=== PATIENT | male | born 1945 | race Caucasian/White ===

== ENCOUNTER 2016-09-11 23:17 | Inpatient (IN) | payer MEDICARE, OTHER ==
[~2016-09-11] VITALS: Ht 167.6 cm; Wt 51.3 kg
[2016-09-11 23:20] VITALS: BP 171/81; PULSE 113; RESP 20; TEMP 98.5; O2SAT 95
[2016-09-11] MEDS ORDERED: methylPREDNISolone SOD SUCC 125 MG/2 ML VIAL IV PUSH ONE (23:45)
[2016-09-11] MEDS ORDERED: RESP: ALBUTEROL 2.5 MG/IPRATROPIUM 0.5 MG NEB (SCH) NEB ONE (23:45)
[2016-09-11] MEDS ORDERED: SODIUM CHLOR 0.9% 250 ML INJ 250 ML IV ONE (23:45)
[2016-09-11] MEDS ORDERED: SYMB80AE INH (23:52)
[2016-09-11] MEDS ORDERED: AMLO5 PO (23:52)
[2016-09-11] MEDS ORDERED: CHLO7.5 PO (23:52)
[2016-09-12] VITALS (10 sets, daily range): BP systolic 123–177; BP diastolic 66–94; PULSE 97–117; RESP 17–22; TEMP 97.5–99.1; O2SAT 95–100
[2016-09-12] MEDS ORDERED: RESP: IPRATROPIUM 0.5 MG/2.5 ML NEB NEB ONE
[2016-09-12 00:14] LABS: AUTOMATED NEUTROPHIL # 14.8 TH/MM3 (1.8-7.7); BASOPHIL # 0.1 TH/MM3 (0-0.2); BASOPHIL % 0.3 % (0.0-2.0); EOSINOPHIL # 0.1 TH/MM3 (0-0.4); EOSINOPHIL % 0.8 % (0.0-4.0); HEMATOCRIT 24.9 % (39.0-51.0); HEMO FLAGS DIFF FINAL; LYMPH % 4.6 % (9.0-44.0); LYMPHOCYTE # 0.8 TH/MM3 (1.0-4.8); MEAN CELL VOLUME 79.4 FL (80.0-100.0); MEAN CORPUSCULAR HEMOGLOBIN 24.8 PG (27.0-34.0); MEAN CORPUSCULAR HGB CONC 31.2 % (32.0-36.0); MONO % 10.1 % (0.0-8.0); NEUT % 84.2 % (16.0-70.0); PLATELET COUNT 497 TH/MM3 (150-450); RED BLOOD COUNT 3.14 MIL/MM3 (4.50-5.90); RED CELL DISTRIBUTION WIDTH 16.5 % (11.6-17.2); WHITE BLOOD COUNT 17.6 TH/MM3 (4.0-11.0)
--- NOTE | 2016-09-12 00:15 | RADRPT ---
EXAM DATE/TIME: 09/11/2016 23:45 [place] COMPARISON: No previous studies available for comparison. INDICATIONS : Shortness of breath. MEDICAL HISTORY : Chronic obstructive pulmonary disease. SURGICAL HISTORY : None. ENCOUNTER: Initial ACUITY: 1 day PAIN SCORE: 0/10 LOCATION: Bilateral chest FINDINGS: PA and lateral views of the chest demonstrates hyperinflation which can be seen with CO PD. No infiltrates are seen. Heart is normal in size. The mediastinal contours are unremarkable. O sseous structures are intact. CONCLUSION: Hyperinflation which can be seen with COPD. No acute cardiopulmonary disease an d no evidence for an infiltrate. Soham Herrera MD on September 12, 2016 at 0:13 Board Certified Radiologist. This report was verified electronically.
[2016-09-12 00:28] LABS: INTERNATIONAL NORMALIZED RATIO 0.9 RATIO; PROTHROMBIN TIME - PATIENT 10.4 SEC (9.8-11.6)
[2016-09-12 00:33] LABS: ALT (GPT) 26 U/L (12-78); ANION GAP 6 MEQ/L (5-15); AST (GOT) 32 U/L (15-37); BICARBONATE 33.2 MEQ/L (21.0-32.0); BLOOD UREA NITROGEN 13 MG/DL (7-18); CHLORIDE 90 MEQ/L (98-107); GLOMERULAR FILTRATION RATE 52 ML/MIN (>89); POTASSIUM 4.9 MEQ/L (3.5-5.1); SODIUM (NA) 129 MEQ/L (136-145)
[2016-09-12 00:35] LABS: ALKALINE PHOSPHATASE 93 U/L (45-117); TOTAL BILIRUBIN ADULT 0.4 MG/DL (0.2-1.0)
[2016-09-12] MEDS ORDERED: SODIUM CHLOR 0.9% 250 ML INJ 250 ML IV ONE (01:30)
[2016-09-12] MEDS ORDERED: cefTRIAXone INJ 1,000 MG in SODIUM CHLORIDE 0.9% INJ 100 ML IV ONE (01:30)
[2016-09-12] MEDS ORDERED: NALOXONE HCL 0.4 MG/ML AMP IV PRN (02:00)
[2016-09-12] MEDS ORDERED: SODIUM CHLORIDE 0.9% FLUSH 10 ML FLUSH IV FLUSH PRN (02:00)
--- NOTE | 2016-09-12 02:59 | PD ---
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 Patient states when he attempts to urinate he is only able to produce bloody urine. Patient notes feeling weak and admits to shortness of breath that is increased compared to his baseline respiratory status. She denies fever and chills. PFSH Past Medical History Cancer: Yes COPD: Yes Social History Alcohol Use: Yes Tobacco Use: No Substance Use: No Allergies-Medications (Allergen,Severity, Reaction): Coded Allergies: Albuterol (Verified Allergy, Severe, 09/11/16) Iodine (Verified Allergy, Severe, 09/11/16) Reported Meds & Prescriptions Reported Meds & Active Scripts Active Reported Symbicort Inh (Budesonide/Formoterol Fumarate) 80-4.5 Mcg/Act Aero 2 Puff INH Q12HR Norvasc (Amlodipine Besylate) 5 Mg Tab 5 Mg PO DAILY Tranxene T (Clorazepate Dipotassium) 7.5 Mg Tab 7.5 Mg PO BID PRN Review of Systems ROS Limitations: Clinical Condition Except as stated in HPI: all other systems reviewed are Neg General / Constitutional: No: Fever, Chills, Weight Gain, Weight Loss, Other Eyes: No: Diploplia, Blurred Vision, Photophobia, Drainage, Redness, Foreign Body Sensation, Pain, Tearing, Blind Spots, Visual changes, Blindness, Other HENT: No: Headaches, Vertigo, Lightheadedness, Sore Throat, Rhinitis, Rhinorrhea, Congestion, Nosebleed, Neck Stiffness, Neck Pain, Masses, Gingival Bleeding, Dental Difficulties, Ear Discharge, Earache, Other Cardiovascular: No: Chest Pain or Discomfort, Palpitations, Irregular Rhythm, Tachycardia, Diaphoresis, Syncope, Dyspnea on exertion, Varicosities, Edema, Cyanosis, Varicosities, Phlebitis, Claudication, Other Respiratory: Positive: Shortness of Breath, Wheezing, No: Cough, Sneezing, Orthopnea, Hemoptysis, Stridor, Night Sweats, Pleuritic Pain, Other Gastrointestinal: No: Nausea, Vomiting, Diarrhea, Abdominal Pain, Hematemesis, Hematochezia, Constipation, Changes in Bowel Habits, Indigestion, Dysphagia, Loss of Appetite, Other Genitourinary: Positive: Decreased Urinary Output, No: Urgency, Frequency, Dysuria, Nocturia, Hematuria, Oliguria, Hesitancy, Dribbling, Incontinence, Pelvic Pain, Flank Pain, Dyspareunia, Discharge, Dysmenorrhea, Menorrhagia, Metorrhagia, Vaginal Bleeding, Other Musculoskeletal: No: Myalgias, Arthralgias, Limited ROM, Weakness, Cramping, Edema, Pain, Atrophy, Other Skin: No Rash, No Itching, No Dryness, No Lumps, No Hives, No Change in Pigmentation, No Change in nails, No Alopecia, No Lesions, No Breast Lumps, No Breast Tenderness, No Breast Swelling, No Other Neurologic: No: Weakness, Dizziness, Syncope, Focal Abnormalities, Coordination Problem, Tremor, Ataxia, Headache, Change in Mentation, Slurred Speech, Paresthesia, Incontinence, Seizures, Sensory Disturbance, Other Psychiatric: No: Anxiety, Depression, Suicidal Ideations, Disorder of Thought, Mood Disorder, Substance Abuse, Homicidal Ideation, Other Endocrine: No: Heat Intolerance, Cold Intolerance, Polyuria, Polydipsia, Other Hematologic/Lymphatic: No: Easy Bruising, Lymph Node Enlargement, Other Physical Exam Exam Limitations: Clinical Condition Narrative GENERAL: Elderly male in moderate distress SKIN: Focused skin assessment warm/dry.no lesions skin very HEAD: Atraumatic. Normocephalic. EYES: Pupils equal and round and reactive . No scleral icterus. No injection or drainage. ENT: No nasal bleeding or discharge. Mucous membranes pink and moist. NECK: Trachea midline. No JVD. CARDIOVASCULAR: S1-S2 appreciated. Regular rate and rhythm. No murmur appreciated. Pulses normal throughout. RESPIRATORY: Respirations are mildly labored positive expiratory wheezes diffusely no rhonchi appreciated GASTROINTESTINAL: Abdomen soft, non-tender, nondistended. Hepatic and splenic margins not palpable. Bowel sounds normal. No peritoneal signs. out of positive tenderness and distention over the bladder area no flank tenderness MUSCULOSKELETAL: No obvious deformities. No clubbing. No cyanosis. No edema. NEUROLOGICAL: Awake and alert and oriented 3.. No obvious cranial nerve deficits. Motor and sensory exam grossly within normal limits. Normal speech. No meningeal signs. PSYCHIATRIC: Appropriate mood and affect; insight and judgment normal. No suicidal or homicidal ideation. Data Data Last Documented VS Vital Signs Date Time Temp Pulse Resp B/P Pulse Ox O2 Delivery O2 Flow Rate FiO2 09/12/16 01:56 115 20 138/94 95 Nasal Cannula 2.5 Automatic Cuff 09/11/16 23:20 98.5 Orders Bladder/Catheter Irrigation (09/11/16 23:31) Complete Blood Count With Diff (09/11/16 23:31) Comprehensive Metabolic Panel (09/11/16 23:31) Prothrombin Time / Inr (Pt) (09/11/16 23:31) Chest, Single Ap (09/11/16 ) Albuterol-Ipratropium Neb (Duoneb Neb) (09/11/16 23:45) Methylprednisolone So Succ Inj (Solumedr (09/11/16 23:45) Oxygen Administration (09/11/16 23:31) Sodium Chlor 0.9% 250 Ml Inj (Ns 250 Ml (09/11/16 23:45) Ipratropium Neb (Atrovent Neb) (09/12/16 00:00) Blood Culture (09/12/16 01:20) Urine Culture (09/12/16 01:20) Ceftriaxone Inj (Rocephin Inj) (09/12/16 01:30) Type And Screen (09/12/16 01:20) Blood Product Administration .UPON TRANSFUSION (09/12/16 01:23) Sodium Chlor 0.9% 250 Ml Inj (Ns 250 Ml (09/12/16 01:30) Admit To Inpatient (09/12/16 ) Vital Signs (Adult) Q4H (09/12/16 01:53) Activity Oob With Assistance (09/12/16 01:53) Tool Keeper / Telemetry .CONTINUOUS (09/12/16 01:53) Intake + Output IAN.QSHIFT (09/12/16 01:53) Diet Heart Healthy (09/12/16 Breakfast) Sodium Chloride 0.9% Flush (Ns Flush) (09/12/16 02:00) Sodium Chloride 0.9% Flush (Ns Flush) (09/12/16 09:00) Basic Metabolic Panel (Bmp) (09/13/16 06:00) Complete Blood Count With Diff (09/13/16 06:00) Case Management Consult (09/12/16 01:53) Naloxone Inj (Narcan Inj) (09/12/16 02:00) Inpatient Certification (09/12/16 ) Admit Order (Ed Use Only) (09/12/16 01:56) Red Blood Cells (Rbc) (09/12/16 01:50) Labs Laboratory Tests Test 09/12/16 09/12/16 00:02 01:50 White Blood Count 17.6 TH/MM3 Red Blood Count 3.14 MIL/MM3 Hemoglobin 7.8 GM/DL Hematocrit 24.9 % Mean Corpuscular Volume 79.4 FL Mean Corpuscular Hemoglobin 24.8 PG Mean Corpuscular Hemoglobin 31.2 % Concent Red Cell Distribution Width 16.5 % Platelet Count 497 TH/MM3 Mean Platelet Volume 6.7 FL Neutrophils (%) (Auto) 84.2 % Lymphocytes (%) (Auto) 4.6 % Monocytes (%) (Auto) 10.1 % Eosinophils (%) (Auto) 0.8 % Basophils (%) (Auto) 0.3 % Neutrophils # (Auto) 14.8 TH/MM3 Lymphocytes # (Auto) 0.8 TH/MM3 Monocytes # (Auto) 1.8 TH/MM3 Eosinophils # (Auto) 0.1 TH/MM3 Basophils # (Auto) 0.1 TH/MM3 CBC Comment DIFF FINAL Differential Comment Prothrombin Time 10.4 SEC Prothromb Time International 0.9 RATIO Ratio Sodium Level 129 MEQ/L Potassium Level 4.9 MEQ/L Chloride Level 90 MEQ/L Carbon Dioxide Level 33.2 MEQ/L Anion Gap 6 MEQ/L Blood Urea Nitrogen 13 MG/DL Creatinine 1.34 MG/DL Estimat Glomerular Filtration 52 ML/MIN Rate Random Glucose 139 MG/DL Calcium Level 8.5 MG/DL Total Bilirubin 0.4 MG/DL Aspartate Amino Transf 32 U/L (AST/SGOT) Alanine Aminotransferase 26 U/L (ALT/SGPT) Alkaline Phosphatase 93 U/L Total Protein 7.6 GM/DL Albumin 3.5 GM/DL Blood Type O POSITIVE Antibody Screen NEGATIVE Crossmatch Leukocyte-Reduced Red Blood Cells Blood Bank Comment MDM Medical Decision Making Medical Screen Exam Complete: Yes Emergency Medical Condition: Yes Medical Record Reviewed: Yes Interpretation(s) EKG read as A. fib with RVR by the machine however further inspection of the 2 a patient appears to be an a rhythm consistent with sinus tachycardia Differential Diagnosis Differential diagnoses review exacerbate daily retention hemorrhagic cystitis symptomatic anemia Diagnosis Primary Impression: acute urinary retention Additional Impressions: hemorrhagic cystitis Symptomatic anemia Admitting Information Admitting Physician Requests: Admit Condition: Stable Panda Lion MD Sep 12, 2016 02:59
[2016-09-12] MEDS ORDERED: ONDANSETRON HCL 4 MG/2 ML VIAL IV PUSH ONE (03:45)
[2016-09-12] MEDS ORDERED: MORPHINE SULFATE 4 MG/ML INJ IV PUSH ONE (03:45)
--- NOTE | 2016-09-12 05:09 | HHI.HP ---
HPI Service [facility] Primary Care Physician Unknown Admission Diagnosis symptomatic anemia hematuria COPD Diagnoses: (1) Hematuria Chief Complaint: bladder pain, hematuria Travel History International Travel<30 Days: No Contact w/Intl Traveler <30 Da: No Traveled to Known Affected Are: No History of Present Illness Written by Kathryn Lott, acting as scribe for Dr. Sommer on 09/12/16 at 05:09. The patient is seen in his hospital room. He states that over the past 3 months , he has had hematuria with blood clots that would spontaneously resolve over time. Then, the clots got bigger and bigger. On 09/11/16, he was unable to pass the blood clots and his bladder became severely painful. Pain is described as "pressure" in quality. Dr. Del Castillo is his urologist in [place] but has not been seeing any doctors recently. Last saw oncologist one year ago. Max temp 99.5. Reports shortness of breath, n/v/d, or black or red stool. Bladder cancer s/p 36 radiation treatments and chemotherapy; one year later he had a recurrence - bladder cancer resected - was on interior and exterior bladder thomson. Then negative PET scan. . Review of Systems Except as stated in HPI: all other systems reviewed are Neg Past Family Social History Past Medical History Bladder Cancer - 36 radiation treatments and chemotherapy COPD - oxygen dependent Colostomy Hypertension Denies diabetes mellitus, CAD, atrial fibrillation, liver/kidney problems, seizures, DVT, PE, CVA, thyroid problems . Past Surgical History Right foot surgery - talus bone Bladder cancer resection Colostomy . Reported Medications Reported Meds & Active Scripts Active Reported Symbicort Inh (Budesonide/Formoterol Fumarate) 80-4.5 Mcg/Act Aero 2 Puff INH Q12HR Norvasc (Amlodipine Besylate) 5 Mg Tab 5 Mg PO DAILY Tranxene T (Clorazepate Dipotassium) 7.5 Mg Tab 7.5 Mg PO BID PRN . Allergies: Coded Allergies: Albuterol (Verified Allergy, Severe, 09/11/16) Iodine (Verified Allergy, Severe, 09/11/16) Active Ordered Medications Current Medications Albuterol/ Ipratropium (Duoneb Neb) 1 ampule ONCE ONCE NEB ; Start 09/11/16 at 23:45; Stop 09/11/16 at 23:54; Status DC Methylprednisolone Sodium Succinate 125 mg 125 mg ONCE ONCE IV PUSH Last administered on 09/11/16 00:12; Start 09/11/16 at 23:45; Stop 09/11/16 at 23:46; Status DC Sodium Chloride (NS 250 ml Inj) 250 ml @ 250 mls/hr BOLUS ONCE IV Last administered on 09/11/16 00:12; Start 09/11/16 at 23:45; Stop 09/12/16 at 00:44; Status DC Ipratropium [place] 0.5 mg 0.5 mg ONCE ONCE NEB Last administered on 09/12/16 00:09; Start 09/12/16 at 00:00; Stop 09/12/16 at 00:01; Status DC Ceftriaxone Sodium 1000 mg/ Sodium Chloride 100 ml @ 200 mls/hr ONCE ONCE IV Last administered on 09/12/16 01:50; Start 09/12/16 at 01:30; Stop 09/12/16 at 01: 59; Status DC Sodium Chloride (NS 250 ml Inj) 250 ml @ 15 mls/hr ONCE ONCE IV ; Start at 01:30; Stop 09/12/16 at 18:09 Sodium Chloride (NS Flush) 2 ml UNSCH PRN IV FLUSH FLUSH AFTER USING IV ACCESS ; Start 09/12/16 at 02:00 Sodium Chloride (NS Flush) 2 ml BID IV FLUSH ; Start 09/12/16 at 09:00 Naloxone HCl (Narcan Inj) 0.4 mg UNSCH PRN IV SEE LABEL COMMENTS; Start at 02:00 Morphine Sulfate (Morphine Inj) 2 mg ONCE ONCE IV PUSH Last administered on 03:45; Start 09/12/16 at 03:45; Stop 09/12/16 at 03:46; Status DC Ondansetron HCl (Zofran Inj) 4 mg ONCE ONCE IV PUSH Last administered on 03:45; Start 09/12/16 at 03:45; Stop 09/12/16 at 03:46; Status DC . Family History Brother with diabetes mellitus Father with heart problems in advanced age, prostate cancer . Social History Tobacco: 40 years of smoking; quit smoking Alcohol: denies Illicit Drugs: denies . Physical Exam Vital Signs Vital Signs Date Time Temp Pulse Resp B/P Pulse Ox O2 Delivery O2 Flow Rate FiO2 09/12/16 04:30 98.1 117 17 177/80 98 09/12/16 01:56 115 20 138/94 95 Nasal Cannula 2.5 Automatic Cuff 09/11/16 23:53 96 Nasal Cannula 2.5 09/11/16 23:44 114 18 09/11/16 23:20 98.5 113 20 171/81 95 Physical Exam GENERAL: This is a cachectic, chronically ill-appearing male in no acute distress. SKIN: No rashes. Cool and dry. Very pale in appearance. HEAD: Atraumatic. Normocephalic. EYES: No scleral icterus. No injection or drainage. ENT: Nose without bleeding, purulent drainage. NECK: Trachea midline. No JVD. CARDIOVASCULAR: Regular rate and rhythm without murmurs, gallops, or rubs. RESPIRATORY: Clear to auscultation. Breath sounds equal bilaterally. No wheezes , rales, or rhonchi. GASTROINTESTINAL: Abdomen soft, non-tender, nondistended. No guarding. Colostomy. GENITOURINARY: Adan with CBI - pink tinged urine; suprapubic tenderness with palpation. MUSCULOSKELETAL: Extremities without clubbing, cyanosis, or edema. No calf tenderness. NEUROLOGICAL: Awake and alert. Motor and sensory grossly within normal limits. Normal speech. . Laboratory Laboratory Tests Test 09/12/16 09/12/16 09/12/16 00:02 01:50 02:35 White Blood Count 17.6 Red Blood Count 3.14 Hemoglobin 7.8 Hematocrit 24.9 Mean Corpuscular Volume 79.4 Mean Corpuscular Hemoglobin 24.8 Mean Corpuscular Hemoglobin 31.2 Concent Red Cell Distribution Width 16.5 Platelet Count 497 Mean Platelet Volume 6.7 Neutrophils (%) (Auto) 84.2 Lymphocytes (%) (Auto) 4.6 Monocytes (%) (Auto) 10.1 Eosinophils (%) (Auto) 0.8 Basophils (%) (Auto) 0.3 Neutrophils # (Auto) 14.8 Lymphocytes # (Auto) 0.8 Monocytes # (Auto) 1.8 Eosinophils # (Auto) 0.1 Basophils # (Auto) 0.1 CBC Comment DIFF FINAL Differential Comment Prothrombin Time 10.4 Prothromb Time International 0.9 Ratio Sodium Level 129 Potassium Level 4.9 Chloride Level 90 Carbon Dioxide Level 33.2 Anion Gap 6 Blood Urea Nitrogen 13 Creatinine 1.34 Estimat Glomerular Filtration 52 Rate Random Glucose 139 Calcium Level 8.5 Total Bilirubin 0.4 Aspartate Amino Transf 32 (AST/SGOT) Alanine Aminotransferase 26 (ALT/SGPT) Alkaline Phosphatase 93 Total Protein 7.6 Albumin 3.5 Blood Type O POSITIVE O POSITIVE Antibody Screen NEGATIVE Crossmatch Leukocyte-Reduced Red Blood Cells Blood Bank Comment Date/Time Procedure Status Source Growth 09/12/16 01:50 Aerobic Blood Culture Received Blood Line Pending 09/12/16 01:50 Anaerobic Blood Culture Received Blood Line Pending Result Diagram: 09/12/16 0002 09/12/16 0002 Imaging Last Impressions Chest X-Ray 09/11/16 0000 Signed Impressions: Service Date/Time: Sunday, September 11, 2016 23:45 - CONCLUSION: Hyperinflation which can be seen with COPD. No acute cardiopulmonary disease and no evidence for an infiltrate. Soham Herrera MD . Assessment and Plan Problem List: (1) Hematuria ICD Code: R31.9 Status: Acute Assessment and Plan Mr. Monte is a 71 y/o male with a history of bladder cancer who presented to the ER for evaluation of severely painful urination with hematuria. Hematuria/pain/Bladder cancer - consult urology - Morphine 3 mg IV q3h prn pain Anemia, hypochromic, microcytic - secondary to blood loss - Hemoglobin - 7.8, Hematocrit 24.9 - caregiver at bedside reports last Hemoglobin was around 10 - to be transfused two units packed RBCs. However, after long discussion with patient, patient refused for blood transfusion. He would like to think about it and revisit the question later. His caregiver will also bring his lab work copy. He however did report of dyspnea, palpitations, dizziness when asked about these symptoms. He is informed that these are symptomatic anemia. - Transfuse as indicated once patient is agreeable - continuous cardiac telemetry to monitor for arrhythmias - monitor I and Os q shift Leukocytosis - WBC 17.6 with neutrophilia - suspect this is reactive vs. infection - repeat CBC in a.m. and follow trends Acute renal insufficiency versus acute on chronic renal insufficiency - BUN 13, Creatinine 1.34, estimated GFR 52 - no prior labs available for comparison - Received fluid bolus in ER - Recheck BMP in a.m. - Follow trends in renal indices - Avoid nephrotoxins . DVT prophylaxiswith SCD. This note was transcribed by noelle [Kathryn Lott]. I, Dr. Sujit Sommer personally performed the history, physical exam, and medical decision making; and confirmed the accuracy of the information in the transcribed note. Authenticated by Dr. Sujit Sommer 09/12/16 at 05:09 Discussed Condition With ER physician, RN, patient . Physician Certification 2 Midnight Certification Type: Admission for Inpatient Services Order for Inpatient Services The services are ordered in accordance with Medicare regulations or non- Medicare payer requirements, as applicable. In the case of services not specified as inpatient-only, they are appropriately provided as inpatient services in accordance with the 2-midnight benchmark. Estimated LOS (days): 3 days is the estimated time the patient will need to remain in the hospital, assuming treatment plan goals are met and no additional complications. Post-Hospital Plan: Not yet determined Kathryn Lott Sep 12, 2016 05:09 Sujit Sommer MD Sep 12, 2016 07:06
[2016-09-12] MEDS: MORPHINE SULFATE 4 MG/ML INJ IV PUSH PRN ×4 (05:39→21:17)
[2016-09-12] MEDS: SODIUM CHLORIDE 0.9% FLUSH 10 ML FLUSH IV FLUSH SCH ×2 (09:00→21:13)
--- NOTE | 2016-09-12 09:11 | EKG ---
Date Performed: 09/12/2016 Time Performed: 03:17:42 PTAGE: 71 years EKG: SINUS TACHYCARDIA ABNORMAL RHYTHM ECG NO PREVIOUS TRACING DOCTOR: Griffin Lobato Interpretating Date/Time 09/12/2016 09:09:13
--- NOTE | 2016-09-12 10:23 | HHI.PR ---
Addendum to Inpatient Note Addendum Reason: Additional Documentation Additional Information Patient seen and examined. We discussed the possible need for transfusion at length. Will repeat H&H. He is symptomatic. If H&H has not improved, patient will agree for blood transfusion. Lalitha Parra MD Sep 12, 2016 10:23
--- NOTE | 2016-09-12 11:46 | MB ---
cc: BRUNILDA FISHER DATE OF CONSULTATION 09/12/2016 HISTORY OF PRESENT ILLNESS Mr. Monte is a 71-year-old who has a history of colon cancer who underwent colectomy back in 2012. He also has a history of bladder cancer and prostate cancer. He received radiation therapy in the past and over the last few months has had intermittent gross hematuria with clots. His urologist is Dr. Del Castillo in [place]. A Adan catheter was inserted at the bedside and three-way irrigation was instituted. Multiple clots were removed by manual irrigation at the bedside. He is somewhat of a poor historian but does admit to having bladder tumors resected in the past. Recently he has developed urinary retention due to clot retention which is what brought him to the hospital. He does have a long history of both smoking and drinking. PAST MEDICAL HISTORY His medical history includes - 1. Colon cancer. 2. History of bladder cancer who had radiation therapy and chemotherapy. 3. Prostate cancer. 4. COPD. 5. Hypertension. PAST SURGICAL HISTORY 1. Right foot surgery. 2. Colectomy for a history of colon cancer. 3. Transurethral resection of bladder tumors in the past. 4. Right foot surgery. MEDICATIONS For medications please refer to the chart. ALLERGIES ALBUTEROL. IODINE. SOCIAL HISTORY Smoked for 40 years and drank a lot in the past he states. He denies any drug usage. FAMILY HISTORY Noted for prostate cancer in the father. REVIEW OF SYSTEMS A 12-point review of systems were performed which is negative per the HPI. PHYSICAL EXAMINATION VITAL SIGNS: Temperature is 98.3, heart rate 105, respiratory rate 19, 134/66 is his blood pressure. GENERAL: He is a thin 71-year-old male in no acute distress. HEENT: Normocephalic, atraumatic. Pupils equal, round, reactive to light. NECK: Supple. HEART: Rate is sinus tach. LUNGS: Breath sounds bilaterally. ABDOMEN: Soft, nontender, nondistended. : Uncircumcised phallus. Testes are descended. A 22-[place] three-way Adan catheter inserted at the bedside and started on CBI. EXTREMITIES: No cyanosis, clubbing or edema. LABORATORY DATA White count 17.6, hemoglobin 7.8, hematocrit 24.9, platelet count of 497. Sodium 129, potassium 4.9, chloride 90, CO2 33.2, BUN of 13, creatinine 1.3, glucose of 139. PT is 10.4, INR 0.9. Blood cultures are currently pending. RADIOLOGIC STUDIES Chest x-ray was performed on admission, shows hyperinflation consistent with COPD. No infiltrates are noted. ASSESSMENT This is as 71-year-old male who is a poor historian with history of colon cancer, bladder cancer and prostate cancer. He received prior radiation therapy in the past with gross hematuria with clots. PLAN 1. We will institute Amicar CBI to help resolve hematuria. 2. We will obtain CT scan of the abdomen and pelvis without contrast due to minor renal insufficiency. 3. We will send off a PSA. 4. We will follow with you. Thank you for the consult. Brunilda CUEVAS/SSB /10:42 AM /11:11 AM
[2016-09-12] MEDS: AMINOCAPROIC ACID INJ 3,000 MG in SODIUM CHLORIDE 0.9% IRR BAG 3,000 ML IRRIGATION SCH ×2 (12:43→18:39)
[2016-09-12] MEDS: SODIUM CHLOR 0.9% 1000 ML INJ 1,000 ML IV SCH ×2 (12:51→21:25)
--- NOTE | 2016-09-12 13:09 | RADRPT ---
EXAM DATE/TIME: 09/12/2016 12:03 [place] COMPARISON: No previous studies available for comparison. INDICATIONS : Gross hematuria. ORAL CONTRAST: No oral contrast ingested. RADIATION DOSE: 4.50 CTDIvol (mGy) MEDICAL HISTORY : Carcinoma, bladder. SURGICAL HISTORY : None. ENCOUNTER: Initial ACUITY: 3 days PAIN SCALE: 0/10 LOCATION: Bilateral lower quadrant TECHNIQUE: Volumetric scanning of the abdomen and pelvis was performed. Using automated exposure control and ad justment of the mA and/or kV according to patient size, radiation dose was kept as low as reasonably achievable to obtain optimal diagnostic quality images. DICOM format image data is available electro nically for review and comparison. The lack of IV contrast limits the diagnosis for certain organ pa thology. FINDINGS: LOWER LUNGS: The visualized lower lungs are clear. LIVER: Homogeneous density without lesion. There is no dilation of the biliary tree. No calcified gallston es. SPLEEN: Normal size without lesion. Splenic granuloma. PANCREAS: Within normal limits. KIDNEYS: There is prominent hydronephrosis of the right upper clipping system. There is diffuse dilatation of the right ureter. No calcified renal stones are seen. There is a small cyst along the upper pole of t he right kidney measuring approximately 2 cm. The left kidney is unremarkable. No calcified renal sto saige or hydronephrosis. ADRENAL GLANDS: Within normal limits. VASCULAR: There is aneurysmal dilatation involving the mid abdominal aorta measuring 4.7 cm x 3.5 cm. Atheroscl erotic changes are demonstrated. BOWEL/MESENTERY: The stomach, small bowel, and colon demonstrate no acute abnormality. There is no free intraperitone al air or fluid. There is stool throughout the colon. There appears to be a left-sided colostomy. ABDOMINAL WALL: Left-sided colostomy. RETROPERITONEUM: There is no lymphadenopathy. BLADDER: There is a Adan catheter in the bladder. The bladder is decompressed and there does appear to be dif fuse thickening involving the bladder wall. REPRODUCTIVE: The prostate gland appears to be diffusely enlarged and lobulated measuring 6.8 x 5.4 cm. INGUINAL: There is no lymphadenopathy or hernia. MUSCULOSKELETAL: Within normal limits for patient age. Diffuse degenerative changes. CONCLUSION: 1. Prominent hydronephrosis of the right collecting system. 2. Adan catheter in urinary bladder. Diffuse thickening of urinary bladder wall. 3. Diffusely enlarged and loculated prostate gland measuring 6.8 x 5.4 cm. 4. Aneurysmal dilatation of the mid abdominal aorta measuring 4.7 x 3.5 cm. Chuck Holland MD on September 12, 2016 at 13:00 Board Certified Radiologist. This report was verified electronically.
[2016-09-12 15:58] LABS: HEMATOCRIT 21.5 % (39.0-51.0)
[2016-09-12 16:07] LABS: REVIEW FLAG FINAL
[2016-09-12] MEDS: BUDESONIDE-FORMOTEROL 80/4.5 MCG INHALER INH SCH (21:00)
[2016-09-12] MEDS: CALCIUM CARBONATE 500 MG CHEWABLE TAB CHEW PRN (21:12)
[2016-09-13] VITALS: BP 154/79; PULSE 93; RESP 20; TEMP 98.5; O2SAT 98
[2016-09-13] MEDS ORDERED: LACTATED RINGER'S 1000 ML IV PRN (01:00)
[2016-09-13] MEDS ORDERED: METOPROLOL TARTRATE 25 MG TAB PO PRN (01:00)
[2016-09-13] MEDS ORDERED: CHLORHEXIDINE GLUCONATE 2 % 1 PACK (2 CLOTHS) TOPICAL PRN (01:00)
[2016-09-13] MEDS ORDERED: SODIUM CHLORID 0.9% 500 ML IV PRN (01:00)
[2016-09-13 04:00] VITALS: BP 163/81; PULSE 90; RESP 20; TEMP 98.2; O2SAT 99
[2016-09-13 05:38] LABS: AUTOMATED NEUTROPHIL # 11.4 TH/MM3 (1.8-7.7); BASOPHIL % 0.1 % (0.0-2.0); HEMO FLAGS DIFF FINAL; LYMPH % 3.6 % (9.0-44.0); LYMPHOCYTE # 0.5 TH/MM3 (1.0-4.8); MEAN CELL VOLUME 80.9 FL (80.0-100.0); MEAN CORPUSCULAR HEMOGLOBIN 26.5 PG (27.0-34.0); MEAN CORPUSCULAR HGB CONC 32.8 % (32.0-36.0); MONO % 13.3 % (0.0-8.0); PLATELET COUNT 378 TH/MM3 (150-450); RED BLOOD COUNT 3.59 MIL/MM3 (4.50-5.90); RED CELL DISTRIBUTION WIDTH 16.8 % (11.6-17.2); WHITE BLOOD COUNT 13.7 TH/MM3 (4.0-11.0)
[2016-09-13 06:03] LABS: BICARBONATE 34.4 MEQ/L (21.0-32.0)
[2016-09-13 08:00] VITALS: BP 184/92; PULSE 93; RESP 18; TEMP 97.7; O2SAT 97
--- NOTE | 2016-09-13 08:00 | HHI.PR ---
Subjective Patient symptoms today Pt seen and examined. His urine has cleared. Irrigated last PM. He is refusing surgery and wants to go home. Objective Vital Signs Vital Signs Date Time Temp Pulse Resp B/P Pulse Ox O2 Delivery O2 Flow Rate FiO2 09/13/16 04:00 98.2 90 20 163/81 99 09/13/16 00:00 98.5 93 20 154/79 98 09/12/16 22:00 98.5 97 20 142/74 99 09/12/16 21:37 99.1 99 20 98 135/74 09/12/16 21:12 99 Nasal Cannula 2.00 09/12/16 20:01 100 09/12/16 20:00 99.0 106 22 136/76 99 09/12/16 17:03 98.2 104 20 132/70 09/12/16 17:02 20 09/12/16 16:00 98.2 104 19 132/70 100 09/12/16 12:00 97.5 108 19 123/74 100 09/12/16 08:00 98.3 105 19 134/66 98 09/12/16 08:00 100 Intake & Output 09/13/16 09/13/16 07:00 19:00 Intake Total 1420 ml Output Total 4206 ml Balance -2786 ml Intake Oral 240 ml IV Total 448 ml Packed Cells 732 ml Output Urine Total 4200 ml Stool Total 6 ml # Bowel Movements 1 Result Diagram: 09/13/1644709/13/16447 Objective Remarks Abd:soft,nt,nd Adan: urine clear; manually irrigated at bedside and pt is clear Medications and IVs Current Medications Medications (Trade) Dose Ordered Sig/Sushil Route Start Time Stop Time Status Last Admin (NS Flush) 2 ml UNSCH PRN IV FLUSH 09/12/16 02:00 (NS Flush) 2 ml BID IV FLUSH 09/12/16 09:00 09/12/16 21:13 (Narcan Inj) 0.4 mg UNSCH PRN IV 09/12/16 02:00 Morphine Sulfate 3 mg 3 mg Q3H PRN IV PUSH 09/12/16 05:15 09/12/16 21:17 Sodium Chloride 1,000 ml @ 84 mls/hr [id number] IV 09/12/16 09:30 09/12/16 12:51 (Amicar Inj/NS Irr Bag) 3,012 ml @ 125.5 mls/ hr Q24H IRRIGATION 09/12/16 12:00 09/12/16 18:39 (Tums Chew) 500 mg Q2H PRN CHEW 09/12/16 17:00 09/12/16 21:12 (Norvasc) 5 mg DAILY PO 09/13/16 09:00 (Symbicort 80-4.5 Mcg Inh) 2 puff Q12HR INH 09/12/16 21:00 Diazepam 5 mg 5 mg BID PRN PO 09/12/16 17:00 09/13/16 00:00 Lactated Ringer's 1,000 ml @ 30 mls/hr Q24H PRN IV 09/13/16 01:00 09/16/16 00:59 (NS 500 ml Inj) 500 ml @ 30 mls/hr [id number] PRN IV 09/13/16 01:00 09/16/16 00:59 Assessment and Plan Assessment and Plan 71 y.o male with h/o prostate, bladder and colon cancer s/p XRT in the past with resolving gross hematuria Hgb improved to 9.5 s/p 2 units PRBC's Titrate CBI to off Void trial in AM if urine is clear. Eber Madrigal DO Sep 13, 2016 08:00
[2016-09-13] MEDS: amLODIPine BESYLATE 5 MG TAB PO SCH (08:39)
[2016-09-13] MEDS: DIAZEPAM 5 MG TAB PO PRN ×2 (08:39)
[2016-09-13] MEDS: MORPHINE SULFATE 4 MG/ML INJ IV PUSH PRN ×2 (08:39→20:36)
[2016-09-13] MEDS: SODIUM CHLOR 0.9% 1000 ML INJ 1,000 ML IV SCH (08:40)
[2016-09-13] MEDS: SODIUM CHLORIDE 0.9% FLUSH 10 ML FLUSH IV FLUSH SCH ×2 (08:46→20:38)
[2016-09-13] MEDS: BUDESONIDE-FORMOTEROL 80/4.5 MCG INHALER INH SCH ×2 (08:50→20:37)
--- NOTE | 2016-09-13 09:59 | HHI.PR ---
Subjective Remarks The patient continues to have hematuria. However he requested discharge from the hospital. He states he will go to another hospital. He declined surgery offered by urology. He requested his Adan be taken out prior to discharge. Objective Vitals Vital Signs Date Time Temp Pulse Resp B/P Pulse Ox O2 Delivery O2 Flow Rate FiO2 09/13/16 04:00 98.2 90 20 163/81 99 09/13/16 00:00 98.5 93 20 154/79 98 09/12/16 22:00 98.5 97 20 142/74 99 09/12/16 21:37 99.1 99 20 98 135/74 09/12/16 21:12 99 Nasal Cannula 2.00 09/12/16 20:01 100 09/12/16 20:00 99.0 106 22 136/76 99 09/12/16 17:03 98.2 104 20 132/70 09/12/16 17:02 20 09/12/16 16:00 98.2 104 19 132/70 100 09/12/16 12:00 97.5 108 19 123/74 100 I/O 09/12/16 09/12/16 09/12/16 09/13/16 09/13/16 09/13/16 07:00 15:00 23:00 07:00 15:00 23:00 Intake Total 606 ml 814 ml Output Total 1900 ml 6900 ml 2856 ml 1350 ml Balance -1900 ml -6900 ml -2250 ml -536 ml Intake Oral 240 ml 0 ml IV Total 448 ml Packed Cells 366 ml 366 ml Output Urine Total 1900 ml 6900 ml 2850 ml 1350 ml Stool Total 6 ml # Bowel Movements 0 1 Result Diagram: 09/13/16 0448 09/13/16 0448 Objective Remarks GENERAL: Patient in no acute distress. Still with persistent hematuria. CARDIOVASCULAR: Normal rate and regular rhythm without murmurs, gallops, or rubs. RESPIRATORY: Poor air movement. Diminished breath sounds at the bases bilaterally. GASTROINTESTINAL: Abdomen soft, non-tender, non-distended. Normal active bowel sounds MUSCULOSKELETAL: Extremities without cyanosis, or edema. NEURO: Alert & Oriented x4 to person, place, time, situation. Moves all ext x4 PSYCH: Appropriate mood and affect. A/P Problem List: (1) Hematuria ICD Code: R31.9 Status: Acute Assessment and Plan 71 y/o male with a history of bladder cancer who presented to the ER for evaluation of severely painful urination with hematuria. The patient was followed by urology. Patient was offered cystoscopy with possible resection. However he refused any surgery. He was severely anemic on presentation as well. Initially refused transfusion but later agreed. He is H&H stabilized. Unfortunately the patient refused any further treatment here and left the hospital AGAINST MEDICAL ADVICE. He states he will go to another hospital. Lalitha Parra MD Sep 13, 2016 09:59
[2016-09-13] MEDS: CALCIUM CARBONATE 500 MG CHEWABLE TAB CHEW PRN (13:53)
[2016-09-13 16:00] VITALS: BP 140/75; PULSE 104; RESP 18; TEMP 97.4; O2SAT 95
--- NOTE | 2016-09-13 18:11 | MB ---
cc: GLENN AMADOR MD DATE OF CONSULTATION 09/13/16 REASON FOR CONSULTATION 1. Gross hematuria 2. History of bladder cancer status post external beam radiation therapy with chemotherapy. 3. History of prostate cancer HISTORY OF PRESENT ILLNESS The patient is a 71-year-old male with a history of muscle invasive bladder cancer who underwent external beam radiation with chemotherapy who also had a recurrence that was resected as well as a history of prostate cancer who was admitted two days ago with complaints of intermittent gross hematuria for the last two months and inability to urinate. He states he has been passing clots for over three months which spontaneously resolve over time. However, over the past week the clots became bigger and bigger and he subsequently went into clot retention and became very painful with extreme lower abdominal pain. The patient was then seen in the ER in which he was found to have a hemoglobin of 7.8. He was transfused two units and urology was consulted for this gross hematuria. He initially saw Dr. Madrigal who inserted a three-way Adan catheter and irrigated him out and started him on Amicar CBI. Within the next 24-36 hours he had subsequently cleared up and his catheter was removed earlier today. He was able to void on his own but still passing blood clots. Dr. Madrigal recommended he undergo cystoscopy and possible TURBT on this admission but the patient refused and wanted to leave [facility] initially and go back to [place] and see Dr. Del Castillo. However, the patient realized if he had left [facility] he would b stuck with a bill and, therefore, requested a second opinion. Currently, the patient wishes to be discharged in the morning. His carrier has scheduled him an appointment with Dr. Del Castillo next September 18. He was able to urinate on his own but is still passing blood clots, but he is comfortable and feels like his bladder is empty. Denies any dysuria, fevers, chills, nausea or vomiting at this time. PAST MEDICAL HISTORY 1. Colon cancer 2. History of bladder cancer 3. Prostate cancer, 4. COPD, 5. Hypertension. PAST SURGICAL HISTORY 1. Right foot surgery 2. Colectomy 3. History of TURBT ALLERGIES ALBUTEROL IODINE SOCIAL HISTORY Smoked for the past 40 years and drinks significant amount of alcohol. Denies any illicit drug use. FAMILY HISTORY His father had prostate cancer. Denies urolithiasis. MEDICATIONS Home medications 1. Symbicort. 2. Norvasc. REVIEW OF SYSTEMS See HPI otherwise all systems reviewed otherwise are negative. PHYSICAL EXAMINATION VITAL SIGNS: Temperature 97.7, pulse 93, respiratory rate 18, BP 184/92, satting 97% on 2 liters nasal cannula. GENERAL: He is alert and oriented x3. No apparent distress. He is agitated but appears his stated age. HEENT: Head is normocephalic, atraumatic. Eyes: No scleral icterus. Eyes: No scleral icterus. NECK: Supple. Trachea is midline. No JVD. SKIN: No ulcers or rashes that are visible. Mucous membranes moist and pink. LUNGS: Slightly labored respirations. No wheezes, rales or rhonchi. HEART: Regular rhythm. No murmurs, gallops or rubs. ABDOMEN: Soft, flat, nontender, nondistended. Positive bowel sounds. GENITOURINARY: Penis is circumcised. Testes are descended bilaterally, normal size and consistency. EXTREMITIES: Nontender. No clubbing, cyanosis or edema. NEUROLOGIC: Cranial nerves II-XII intact. Strength 5/5 in all four extremities. PSYCHIATRIC: Normal affect. LABORATORY DATA White count 13.7, hemoglobin 9.5, hematocrit 29.0, platelet count 378. Sodium 135, potassium 4.0, chloride 97, bicarb 34.4, BUN 12, creatinine 0.83. IMAGING STUDIES CT abdomen and pelvis without contrast. Images reviewed, agreed with radiologist's report. The patient has mild right hydronephrosis as well as enlarged prostate. Adan is in the bladder decompressing the bladder. There is a small cyst of the right kidney that is approximately 2 cm. No evidence of kidney stones are seen. ASSESSMENT The patient is a 71-year-old male with history of bladder cancer status post external beam radiation with chemotherapy as well as prostate cancer admitted with intermittent gross hematuria and clot retention and anemia with right hydroureter nephrosis. PLAN Plan will be to keep the Adan catheter out for now. We will check a postvoid residual to ensure he is emptying his bladder. Also repeat his hemoglobin in the morning. As long as he is emptying his bladder and hemoglobin is stable, he will be okay to be discharged in the morning and follow up with Dr. Del Castillo as scheduled. However, if his blood count drops and/or he goes into clot retention, the Adan catheter will need to be replaced and started on CBI. I discussed the plan with the patient and his caregiver and both agreed. MD LISA Abbott/ /4:10 PM /5:45 PM
[2016-09-13 20:00] VITALS: BP 161/83; PULSE 98; RESP 22; TEMP 97.2; O2SAT 93
[2016-09-14] VITALS: BP 173/93; PULSE 98; RESP 20; TEMP 96.5; O2SAT 99
[2016-09-14] MEDS: DIAZEPAM 5 MG TAB PO PRN (02:08)
[2016-09-14] MEDS: MORPHINE SULFATE 4 MG/ML INJ IV PUSH PRN (05:46)
[2016-09-14 06:47] LABS: HEMATOCRIT 29.6 % (39.0-51.0); MEAN CELL VOLUME 82.5 FL (80.0-100.0); MEAN CORPUSCULAR HGB CONC 31.5 % (32.0-36.0); PLATELET COUNT 327 TH/MM3 (150-450); RED BLOOD COUNT 3.58 MIL/MM3 (4.50-5.90); REVIEW FLAG FINAL; WHITE BLOOD COUNT 9.9 TH/MM3 (4.0-11.0)
[2016-09-14 07:08] LABS: BICARBONATE 34.1 MEQ/L (21.0-32.0); POTASSIUM 3.2 MEQ/L (3.5-5.1)
[2016-09-14] MEDS: amLODIPine BESYLATE 5 MG TAB PO SCH (07:37)
[2016-09-14] MEDS: BUDESONIDE-FORMOTEROL 80/4.5 MCG INHALER INH SCH (07:38)
[2016-09-14] MEDS: SODIUM CHLORIDE 0.9% FLUSH 10 ML FLUSH IV FLUSH SCH (07:38)
[2016-09-14 08:00] VITALS: BP 163/91; PULSE 83; RESP 18; TEMP 97.4; O2SAT 99
[2016-09-14] MEDS ORDERED: POTASSIUM CHLORIDE 10 MEQ CONTROLLED RELEASE TAB PO ONE (09:30)
--- NOTE | 2016-09-14 09:48 | HHI.DCPOC ---
Discharge Care Plan Diagnosis: (1) Hematuria (2) Symptomatic anemia (3) Urinary retention Goals to Promote Your Health * To prevent worsening of your condition and complications * To maintain your health at the optimal level Directions to Meet Your Goals Take your medications as prescribed Follow your dietary instruction Follow activity as directed Keep your appointments as scheduled Take your immunizations and boosters as scheduled If your symptoms worsen call your PCP, if no PCP go to Urgent Care Center or Emergency Room Smoking is Dangerous to Your Health. Avoid second hand smoke Call the 24-hour hour crisis hotline for domestic abuse at Lalitha Parra MD Sep 14, 2016 09:48
--- NOTE | 2016-09-14 09:48 | HHI.DS ---
Discharge Summary Admission Date Sep 12, 2016 at 02:00 Discharge Date: Sep 14, 2016 Admitting Diagnosis symptomatic anemia hematuria COPD (1) Hematuria ICD Code: R31.9 Procedures None Brief History - From Admission History of present illness from the admitting physician. The patient is seen in his hospital room. He states that over the past 3 months , he has had hematuria with blood clots that would spontaneously resolve over time. Then, the clots got bigger and bigger. On 09/11/16, he was unable to pass the blood clots and his bladder became severely painful. Pain is described as "pressure" in quality. Dr. Del Castillo is his urologist in [place] but has not been seeing any doctors recently. Last saw oncologist one year ago. Max temp 99.5. Reports shortness of breath, n/v/d, or black or red stool. Bladder cancer s/p 36 radiation treatments and chemotherapy; one year later he had a recurrence - bladder cancer resected - was on interior and exterior bladder thomson. Then negative PET scan. . CBC/BMP: 09/14/16 0514 09/14/16 0514 Significant Findings Laboratory Tests Test 09/12/16 09/12/16 09/13/16 09/14/16 00:02 14:28 04:48 05:14 White Blood Count 17.6 TH/MM3 13.7 TH/MM3 (4.0-11.0) (4.0-11.0) Red Blood Count 3.14 MIL/MM3 3.59 MIL/MM3 3.58 MIL/MM3 (4.50-5.90) (4.50-5.90) (4.50-5.90) Hemoglobin 7.8 GM/DL 6.8 GM/DL 9.5 GM/DL 9.3 GM/DL (13.0-17.0) (13.0-17.0) (13.0-17.0) (13.0-17.0) Hematocrit 24.9 % 21.5 % 29.0 % 29.6 % (39.0-51.0) (39.0-51.0) (39.0-51.0) (39.0-51.0) Mean Corpuscular Volume 79.4 FL (80.0-100.0) Mean Corpuscular Hemoglobin 24.8 PG 26.5 PG 26.0 PG (27.0-34.0) (27.0-34.0) (27.0-34.0) Mean Corpuscular Hemoglobin 31.2 % 31.5 % Concent (32.0-36.0) (32.0-36.0) Platelet Count 497 TH/MM3 (150-450) Mean Platelet Volume 6.7 FL (7.0-11.0) Neutrophils (%) (Auto) 84.2 % 83.0 % (16.0-70.0) (16.0-70.0) Lymphocytes (%) (Auto) 4.6 % 3.6 % (9.0-44.0) (9.0-44.0) Monocytes (%) (Auto) 10.1 % 13.3 % (0.0-8.0) (0.0-8.0) Neutrophils # (Auto) 14.8 TH/MM3 11.4 TH/MM3 (1.8-7.7) (1.8-7.7) Lymphocytes # (Auto) 0.8 TH/MM3 0.5 TH/MM3 (1.0-4.8) (1.0-4.8) Monocytes # (Auto) 1.8 TH/MM3 1.8 TH/MM3 (0-0.9) (0-0.9) Sodium Level 129 MEQ/L 135 MEQ/L 135 MEQ/L (136-145) (136-145) (136-145) Chloride Level 90 MEQ/L 97 MEQ/L 95 MEQ/L (98-107) (98-107) (98-107) Carbon Dioxide Level 33.2 MEQ/L 34.4 MEQ/L 34.1 MEQ/L (21.0-32.0) (21.0-32.0) (21.0-32.0) Creatinine 1.34 MG/DL (0.60-1.30) Estimat Glomerular Filtration 52 ML/MIN (>89) Rate Random Glucose 139 MG/DL 110 MG/DL 73 MG/DL (74-106) (74-106) (74-106) Anion Gap 4 MEQ/L (5-15) Calcium Level 8.1 MG/DL 8.2 MG/DL (8.5-10.1) (8.5-10.1) Potassium Level 3.2 MEQ/L (3.5-5.1) Imaging Last Impressions Abdomen/Pelvis CT 09/12/16 0000 Signed Impressions: Service Date/Time: Monday, September 12, 2016 12:03 - CONCLUSION: 1. Prominent hydronephrosis of the right collecting system. 2. Adan catheter in urinary bladder. Diffuse thickening of urinary bladder wall. 3. Diffusely enlarged and loculated prostate gland measuring 6.8 x 5.4 cm. 4. Aneurysmal dilatation of the mid abdominal aorta measuring 4.7 x 3.5 cm. Chuck Holland MD Chest X-Ray 09/11/16 0000 Signed Impressions: Service Date/Time: Sunday, September 11, 2016 23:45 - CONCLUSION: Hyperinflation which can be seen with COPD. No acute cardiopulmonary disease and no evidence for an infiltrate. Soham Herrera MD PE at Discharge GENERAL: Patient in no acute distress. Still with persistent hematuria. CARDIOVASCULAR: Normal rate and regular rhythm without murmurs, gallops, or rubs. RESPIRATORY: Poor air movement. Diminished breath sounds at the bases bilaterally. GASTROINTESTINAL: Abdomen soft, non-tender, non-distended. Normal active bowel sounds MUSCULOSKELETAL: Extremities without cyanosis, or edema. NEURO: Alert & Oriented x4 to person, place, time, situation. Moves all ext x4 PSYCH: Appropriate mood and affect. Pt update on day of discharge Patient adamant about going home. He states he will follow-up with his urologist. Still having occasional clots but states he is passing urine and is comfortable with going home. His H&H remained stable today. Hospital Course 71 y/o male with a history of bladder cancer who presented to the ER for evaluation of severely painful urination with hematuria. The patient was followed by urology. Patient was offered cystoscopy with possible resection. However he refused any surgery. He was severely anemic on presentation as well. Initially refused transfusion but later agreed. His H&H stabilized and he requested to be discharged to follow-up with his urologist. Patient cleared for discharge but was extensively counseled on possibility of persistent urinary clots and retention. He was counseled on when to seek medical care but advised to call his urologist to be seen today or [facility]. Pt Condition on Discharge: Stable Discharge Disposition: Discharge Home Discharge Time: <= 30 minutes Discharge Instructions DIET: Follow Instructions for: As Tolerated, No Restrictions Activities you can perform: Regular-No Restrictions Continued Medications: Amlodipine (Norvasc) 5 Mg Tab 5 MG PO DAILY Blood Pressure Management #30 Ref 0 TAB Budesonide-Formoterol Inh (Symbicort Inh) 80-4.5 Mcg/Act Aero 2 PUFF INH Q12HR Asthma Management #1 Ref 0 INHALER Clorazepate (Tranxene T) 7.5 Mg Tab 7.5 MG PO BID PRN Anxiety Ref 0 TAB Lalitha Parra MD Sep 14, 2016 09:48
== END 2016-09-14 11:10 | disposition home or self-care (01) | DRG 699 ==
LOC: NEPC 23:17 → NEDA 09-12 02:00 → N07B 09-12 04:05
PROVIDERS: ADMIT Family Medicine; ATTEND Family Medicine
PROC: 0T9B70Z Drainage of Bladder with Drainage Device, Via Natural or Artificial Opening (ICD-10-PCS; principal; 2016-09-12)
PROC: 3E1K78Z Irrigation of Genitourinary Tract using Irrigating Substance, Via Natural or Artificial Opening (ICD-10-PCS; 2016-09-12)
PROC: 30233N1 Transfusion of Nonautologous Red Blood Cells into Peripheral Vein, Percutaneous Approach (ICD-10-PCS; 2016-09-12)
DX: N32.89 Other specified disorders of bladder (principal); R64 Cachexia; N13.30 Unspecified hydronephrosis; Z99.81 Dependence on supplemental oxygen; Z68.1 Body mass index [BMI] 19.9 or less, adult; R33.9 Retention of urine, unspecified; J44.9 Chronic obstructive pulmonary disease, unspecified; D50.0 Iron deficiency anemia secondary to blood loss (chronic); I10 Essential (primary) hypertension; N28.1 Cyst of kidney, acquired; N28.9 Disorder of kidney and ureter, unspecified; Z87.891 Personal history of nicotine dependence; Z93.3 Colostomy status; Z92.21 Personal history of antineoplastic chemotherapy; Z92.3 Personal history of irradiation; Z90.49 Acquired absence of other specified parts of digestive tract; Z85.038 Personal history of other malignant neoplasm of large intestine; Z85.46 Personal history of malignant neoplasm of prostate; Z80.42 Family history of malignant neoplasm of prostate; Z82.49 Family history of ischemic heart disease and other diseases of the circulatory system; Z83.3 Family history of diabetes mellitus; Z85.51 Personal history of malignant neoplasm of bladder
CPT/HCPCS: 36430; 51700; 71010; 74176; 80048; 80053; 84153; 85014; 85018; 85025; 85027; 85610; 86850; 86900; 86901; 86920; 87040; 93005; 94664; 96374; 96375; J0696; J2270; J2405; J2930; J7030; J7050; J7644; P9016